=== PATIENT | female | born 2000 | race Caucasian/White ===

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

== ENCOUNTER 2019-08-19 20:41 | Emergency (ER) | payer OTHER ==
[2019-08-19 20:52] VITALS: BP 131/79
--- NOTE | 2019-08-19 21:21 | ED ---
Lower Extremity - HPI Summary HPI Summary: 18-year-old female with no significant past medical history presents the emergency department today complaining of 4 out of 10 left foot pain which began approximately 2 hours ago. Patient states her pain is on the lateral aspect of her left foot and is made worse with ambulation. Patient states she has not attempted annually since she originally hurt her foot. Patient states her foot was asleep and she began walking on an attempt to return sensation to her foot when she heard a loud crack and then began feeling 9 out of 10 pain to the lateral aspect of her left foot. Patient denies use of anticoagulants. Patient has full range of motion at the ankle. The patient is neurovascularly intact and otherwise feels well and denies fever, chest pain, abdominal pain, shortness of breath, nausea, vomiting diarrhea. There is no ecchymosis or edema noted. - History of Current Complaint Chief Complaint: EDExtremityLower Stated Complaint: LEFT FOOT INJURY PER PT Time Seen by Provider: 08/19/19 21:14 Hx Obtained From: Patient Mechanism Of Injury: Unknown Onset of Pain: Hours, Prior to Arrival Onset/Duration: Hours Severity Initially: Severe Severity Currently: Severe Pain Intensity: 7 Pain Scale Used: 0-10 Numeric Timing: Constant Location: Is Discrete @ - left foot Character Of Pain: Aching Associated Signs And Symptoms: Negative: Swelling, Redness, Bruising, Fever Aggravating Factor(s): Ambulation, Movement, Weight Bearing, Stairs Alleviating Factor(s): Rest, Elevation Able to Bear Weight: Yes - Allergies/Home Medications Allergies/Adverse Reactions: Allergies Allergy/AdvReac Type Severity Reaction Status Date / Time No Known Allergies Allergy Verified 08/19/19 20:51 PMH/Surg Hx/FS Hx/Imm Hx Infectious Disease History: No Infectious Disease History: Denies: Traveled Outside the [place] in Last 30 Days - Family History Known Family History: Positive: Non-Contributory - Social History Alcohol Use: None Substance Use Type: Reports: None Smoking Status (MU): Never Smoked Tobacco Review of Systems Constitutional: Negative Eyes: Negative ENT: Negative Cardiovascular: Negative Respiratory: Negative Gastrointestinal: Negative Genitourinary: Negative Positive: Arthralgia Skin: Negative Neurological/Mental Status: Negative Psychological: Normal All Other Systems Reviewed And Are Negative: Yes Physical Exam - Summary Physical Exam Summary: Patient is no distress. There is no ecchymosis, edema, erythema to the foot. Patient has been in the palpation of the lateral fifth metatarsal head. Patient has full range of motion of the ankle. Dorsalis pedis pulse 2+ bilaterally. Patient has brisk capillary refill of the lower extremity. Triage Information Reviewed: Yes Vital Signs On Initial Exam: Initial Vitals Temp Pulse Resp BP Pulse Ox 99.1 F 79 15 131/79 96 08/19/19 20:49 08/19/19 20:49 08/19/19 20:49 08/19/19 20:49 08/19/19 20:49 Vital Signs Reviewed: Yes Appearance: Positive: Well-Appearing, No Pain Distress, Well-Nourished Skin: Positive: Warm, Skin Color Reflects Adequate Perfusion Eyes: Positive: EOMI, [place] ENT: Positive: Hearing grossly normal Respiratory/Lung Sounds: Positive: Clear to Auscultation, Breath Sounds Present Cardiovascular: Positive: RRR, S1, S2 Musculoskeletal: Positive: Strength/ROM Intact Neurological: Positive: Sensory/Motor Intact, Alert, Oriented to Person Place, Time, Normal Gait, Facial Symmetry, Speech Normal Psychiatric: Positive: Normal, Affect/Mood Appropriate AVPU Assessment: Alert Procedures - Sedation Patient Received Moderate/Deep Sedation with Procedure: No Diagnostics - Vital Signs Vital Signs Temp Pulse Resp BP Pulse Ox 08/19/19 20:49 99.1 F 79 15 131/79 96 - Laboratory Lab Statement: Any lab studies that have been ordered have been reviewed, and results considered in the medical decision making process. Lower Extremity Course/Dx - Course Course Of Treatment: Patient evaluated in the emergency department today for left foot pain. Vitals noted. Patient neurovascularly intact and has full range of motion of the ankle. X-ray was done which showed no evidence of fracture the left foot. Patient does not appear to have any significant orthopedic medical problem at this time. Patient took ibuprofen prior to arrival and declined pain medication in the emergency department. Patient is able to ambulate. Patient discharged outpatient follow-up. - Diagnoses Differential Diagnosis/HQI/PQRI: Positive: Arthritis, Contusion, DVT, Fracture ( Closed), Sprain, Strain Provider Diagnoses: Foot pain Discharge ED - Sign-Out/Discharge Documenting (check all that apply): Patient Departure - Discharge Plan Condition: Stable Disposition: HOME Patient Education Materials: Arthralgia (ED) Referrals: [facility] [Outside] - 3 Days No Primary Care Phys,[facility] [Primary Care Provider] - Additional Instructions: You were seen in the emergency department today for left foot pain. Please follow up with [facility] in 5 days for further evaluation and management of your injury. Until you are seen please return to activity is tolerated. For further alleviation of your symptoms please practice R.I.C.E therapy. Rest, Ice , compress, elevate the affected area. * Ibuprofen 600mg three times daily with meals for pain. * If numbness, tingling, decreased sensation, increased pain, temperature changes or pallor noted in toes, come back to ER immediately. * Protect the area. For your comfort level, do not bear weight, pull or push until you can injury is somewhat healed. This may involve the need for immobilization or crutches for a period of time. * Rest the involved area, but not too long. You may need to be off your injury for some time to allow for healing, however excessive immobilization of joints can lead to stiffness and delay healing time. Early mobilization is encouraged if it is pain-free. * Ice: Not directly on the skin. Cover with a towel. Apply ice no more than 30 minutes at a time * Compression: You may use and keep an haylee wrap bandage over the injury to decrease swelling. Again, this should be limited and be taken off periodically to encourage early range of motion and mobilization. * Elevate: Try to elevate the injured area above the heart whenever possible, Especially during sleep. - Billing Disposition and Condition Condition: STABLE Disposition: Home - Attestation Statements Provider Attestation: I was available for consultation for this patient. I did not evaluate the patient or participate in any medical decision making or disposition decisions unless I am specifically named in the chart as having consulted on the patient. If I have consulted on the patient, please see my own ED note on the patient encounter. Lizette Marley MD
== END 2019-08-19 21:42 | disposition home or self-care (01) ==
LOC: ED 20:41
DX: M79.672 Pain in left foot (principal)
CPT/HCPCS: 99281